=== PATIENT | male | born 1980 | race African-American/Black ===

== ENCOUNTER 2021-06-20 10:45 | Observation (INO) ==
[2021-06-20] MEDS ORDERED: SODIUM CHLORIDE 0.9% 1000ML 1,000 ML IV ONE (11:12)
[2021-06-20] MEDS ORDERED: KETOROLAC TROMETHAMINE 15 MG/ML VIAL IV STA (11:12)
--- NOTE | 2021-06-20 11:19 | Emergency Department Note ---
History of Present Illness General Chief Complaint: Abdominal Pain Stated Complaint: ABDOMINAL PAIN Time Seen by Provider: 06/20/21 11:05 History of Present Illness Provider Complaint: abdominal pain Onset (ago): 2 day(s) Pain Consistency: constant Location: RLQ Severity: moderate Maximum Pain Intensity: 8 Current Pain Intensity: 8 Quality: + stabbing, + aching, + sharp and + dull Relieved By: + nothing Exacerbated By: + nothing Context: no foreign travel, no possible food poisoning, no sick contacts, no recent antibiotic use, no recent surgery/procedure, no recent injury or no history of similar episodes Associated Symptoms: no nausea, no vomiting, no diarrhea, no fever, no chills, no constipation, no dysuria, no hematemesis, no hematochezia, no melena, no hematuria, no anorexia, no syncope, no headache, no neck pain, no back pain, no chest pain, no weakness, no breathing difficulty and no numbness Past Med/Surg History Medical History No pertinent family history No pertinent past medical history Surgical History No pertinent past surgical history Social History Smoking Status: Never smoker Feels Safe at Home: Yes Review of Systems A total of 10 systems reviewed and were otherwise negative Physical Exam Vital Signs: Vital Signs - 24 hr 06/20/21 10:52 06/20/21 12:30 Temperature 36.8 C Temperature Source Temporal Artery Sc an Pulse Rate 78 80 Pulse Rate [Apical ] 80 Respiratory Rate 16 20 Respiratory Effort / Characteristics Non-Labored Sponta neous Respiratory Depth Normal Respiratory Patter n Regular Blood Pressure 175/109 H Blood Pressure [Ri ght Arm] 151/100 H Blood Pressure Sandy n 131 Blood Pressure Sandy n [Right Arm] 117 Blood Pressure Pos ition Sitting Pulse Oximetry 97 98 Oxygen Delivery Me thod Room Air Room Air Sepsis Recent Feve r Within 48 Hours Yes Sepsis New/Unexpla ined Change in Men suha Status N/A Sepsis Action Take n by Nursing No Action Required Physical Exam: Physical Exam GENERAL: He is oriented to person, place, and time. He appears well-developed and well-nourished. He does not appear distressed. HENT: Exam performed. - Head: Normocephalic and atraumatic. - Right Ear: External ear normal. No mastoid tenderness. - Left Ear: External ear normal. No mastoid tenderness. - Mouth/Throat: The oropharynx is clear and moist. No trismus in the jaw. No dental abscesses or uvula swelling. No oropharyngeal exudate or tonsillar abscesses. EYES: Conjunctivae and EOM are normal. Pupils are equal, round, and reactive to light. Right eye exhibits no discharge. Left eye exhibits no discharge. No scleral icterus. NECK: Normal range of motion. Neck supple. No JVD present. No spinous process tenderness present. No carotid bruit present. No rigidity. No tracheal deviation and normal range of motion present. No Brudzinski's sign and no Kernig's sign noted. CV: Normal rate, regular rhythm, normal heart sounds and intact distal pulses. There is no peripheral edema. Palpable radial pulses bue. PULM/CHEST: Effort normal and breath sounds normal. No respiratory distress. No stridor. He has no wheezes. He has no rales. - Chest Wall: He exhibits no tenderness. ABD: The abdomen is soft. Bowel sounds are normal. He has no distension. No mass is present. There is tenderness to palpation of the right lower quadrant. There is no rebound, no guarding, no Loyola's sign. MUSC/SKEL: Normal range of motion. There is no peripheral edema, tenderness or deformity. LYMPH: No cervical adenopathy. NEURO: He is alert and oriented to person, place, and time. He has normal strength. No cranial nerve deficit or sensory deficit. Coordination and gait normal. GCS eye subscore is 4. GCS verbal subscore is 5. GCS motor subscore is 6. Cerebellar tests wnl. SKIN: Skin is warm and dry. He is not diaphoretic. PSYCH: He has a normal mood and affect. Behavior is normal. Judgment and thought content normal. Course Course 1105: The patient was evaluated in room B4. A complete history and physical exam was performed Cardiac monitoring: An order was placed for continuous cardiac monitoring. The monitor shows a rate of 80 with sinus rhythm 1254: Vital signs stable. Labs within normal limits. CT shows appendicitis. Spoke with Giuliana DIETZ for Dr. Wright who states she will be down to evaluate the patient. Zosyn ordered for the patient. Administered Medications Discontinued Medications Sodium Chloride (Nss 1000ml) 1,000 mls @ 999 mls/hr IV .Q1H1M ONE Stop: 06/20/21 12:12 Last Infusion: 06/20/21 12:29 Dose: 0 mls/hr Documented by: [id number] Admin: 06/20/21 11:30 Dose: 999 mls/hr Documented by: [id number] Ioversol (Optiray 320 100ml) 94 ml IV ONCE ONE Stop: 06/20/21 12:19 Last Admin: 06/20/21 12:19 Dose: 94 ml Documented by: [id number] Ketorolac Tromethamine (Ketorolac Tromethamine 15 Mg/Ml Vial) 15 mg IV NOW STA Stop: 06/20/21 11:13 Last Admin: 06/20/21 11:30 Dose: 15 mg Documented by: [id number] Medical Decision Making Laboratory Data Result diagrams: 06/20/21 11:30 06/20/21 11:30 Lab Results 06/20/21 06/20/21 Range/Units 11:30 11:30 WBC 9.28 (4.8-10.8) K/uL RBC 5.34 (4.7-6.1) M/uL Hgb 14.2 (14.0-18.0) g/dL Hct 42.3 (42-52) % MCV 79.2 L (80-100) fL MCH 26.6 (25-34) pg MCHC 33.6 (32-36) g/dL RDW Std Deviation 39.6 (36.4-46.3) fL RDW Coeff of Alberto 13.7 (11.5-14.5) % Plt Count 182 (130-400) K/uL MPV 10.1 (7.4-10.4) fL Immature Gran % (Auto) 0.1 % Neut % (Auto) 62.2 % Lymph % (Auto) 30.8 % [place] % (Auto) 6.5 % Eos % (Auto) 0.3 % Baso % (Auto) 0.1 % Neut # (Auto) 5.77 (1.4-6.5) K/uL Lymph # (Auto) 2.86 (1.2-3.4) K/uL [place] # (Auto) 0.60 H (0.11-0.59) K/uL Eos # (Auto) 0.03 (0-0.5) K/uL Baso # (Auto) 0.01 (0-0.2) K/uL Immature Gran # (Auto) 0.01 (0.00-0.02) K/uL Sodium 137 (136-145) mmol/L Potassium 3.9 (3.5-5.1) mmol/L Chloride 105 (98-107) mmol/L Carbon Dioxide 27 (21-32) mmol/L Anion Gap 5 (3-11) BUN 15 (6-23) mg/dl Creatinine 1.35 (0.6-1.4) mg/dl Est Cr Clr Drug Dosing 72.8 ml/min Est GFR ( Amer) 76.1 ml/min Est GFR (Non-Af Amer) 65.7 ml/min BUN/Creatinine Ratio 11.1 (10-20) Glucose 93 (70-99(Fasting)) mg/dl Calcium 9.4 (8.5-10.1) mg/dl Total Bilirubin 1.0 (0.2-1.0) mg/dl Direct Bilirubin 0.1 (0-0.2) mg/dl AST 15 (13-39) U/L ALT 12 (7-52) U/L Alkaline Phosphatase 77 (34-104) U/L Total Protein 7.3 (6.0-8.3) gm/dl Albumin 4.3 (3.4-5.0) gm/dl Lipase 7 L (11-82) U/L MDM Narrative Vital signs stable. Labs within normal limits. CT shows appendicitis. Spoke with Giuliana DIETZ for Dr. Wright who states she will be down to evaluate the patie nt. Zosyn ordered for the patient. Impression & Plan Acute appendicitis Discharge Plan Visit Data Chief Complaint: Abdominal Pain Stated Complaint: ABDOMINAL PAIN ED Provider: Adrian Valero Discharge Problem: Acute appendicitis Patient Disposition: Being Evaluated by Surgeon Forms Stand Alone Forms: [facility] Referrals Referrals: PCP,NO [Physician] -
[2021-06-20 11:41] LABS: Basophils # (auto) 0.01 K/uL (0-0.2); Basophils % (auto) 0.1 %; Eosinophils # (auto) 0.03 K/uL (0-0.5); Eosinophils % (auto) 0.3 %; Hematocrit (blood only) 42.3 % (42-52); Hemoglobin 14.2 g/dL (14.0-18.0); Immature Granulocytes # (auto) 0.01 K/uL (0.00-0.02); Immature Granulocytes % (auto) 0.1 %; Lymphocytes # (auto) 2.86 K/uL (1.2-3.4); Lymphocytes % (auto) 30.8 %; Mean Corpuscular Hemoglobin 26.6 pg (25-34); Mean Corpuscular Hgb Conc 33.6 g/dL (32-36); Mean Corpuscular Volume 79.2 fL (80-100); Mean Platelet Volume 10.1 fL (7.4-10.4); Monocytes % (auto) 6.5 %; Neutrophils # (auto) 5.77 K/uL (1.4-6.5); Neutrophils % (auto) 62.2 %; Platelet Count 182 K/uL (130-400); RDW Coefficient of Variation 13.7 % (11.5-14.5); RDW Standard Deviation 39.6 fL (36.4-46.3); Red Blood Count 5.34 M/uL (4.7-6.1); White Blood Count 9.28 K/uL (4.8-10.8)
[2021-06-20 11:58] LABS: Albumin Level 4.3 gm/dl (3.4-5.0); BUN Creatinine Ratio 11.1 (10-20); Bilirubin Direct 0.1 mg/dl (0-0.2); Calcium 9.4 mg/dl (8.5-10.1); Creatinine Clr Calc Pharmacy 72.8 ml/min; Est GFR (African American) 76.1 ml/min; Est GFR (Non-African American) 65.7 ml/min; Potassium 3.9 mmol/L (3.5-5.1); Total Protein 7.3 gm/dl (6.0-8.3)
[2021-06-20] MEDS ORDERED: OPTIRAY 320 100ml IV ONE (12:18)
--- NOTE | 2021-06-20 12:42 | CT Scan Report ---
CT abd pelvis IV con only CLINICAL HISTORY: rlq pain evaluate for appy COMPARISON STUDY: No previous studies for comparison. CT DOSE: 276.35 mGy.cm TECHNIQUE: Standard CT of the Abdomen and Pelvis was performed with IV contrast. A dose lowering ronny hnique was utilized adhering to the principles of ALARA. Contrast Volume: ml. The patient did not receive oral contrast. FINDINGS: Lung base: The lung bases are clear. Abdominal cavity: There is no evidence for abdominal mass, adenopathy or ascites. Liver: There is homogeneous attenuation of the liver parenchyma. There is no evidence for enhancing m ass lesion. Spleen: There is homogeneous attenuation of the splenic parenchyma. There is no enhancing mass lesion . Pancreas: There is homogeneous attenuation of the pancreatic parenchyma. There is no evidence for mas s lesion or peripancreatic fluid collection. Gall Bladder: The gallbladder is well distended with no evidence for intraluminal calculi, wall thick ening or pericholecystic edema. Adrenal glands: The adrenal glands are normal in size and attenuation. There is no evidence for enhan cing mass lesion. Kidneys: There is homogeneous attenuation of the renal parenchyma bilaterally. There is no evidence f or renal calculus or hydronephrosis. There is no evidence for enhancing mass. Bowel: The bowel loops are normally placed within the abdomen and pelvis without evidence for dilatat ion or obstruction. There is no evidence for mass lesion. There is dilatation of the appendix measuring approximately 10 mm, with enhancement of the appendicea l wall. Periappendiceal inflammatory changes are present. The findings represent early acute appendic itis. There is no evidence for perforation, abscess or free air. It should be noted that the appendix crosses to the midline. Bladder: The bladder is within normal limits with no evidence for focal mass, calculus or diverticulu m. : There is no evidence for pelvic mass or adenopathy. There is no evidence for pelvic ascites. Vasculature: There is no evidence for aneurysmal dilatation of the abdominal aorta. Osseous structures: There is no acute osseous pathology. IMPRESSION: 1. Evidence for early acute appendicitis with no evidence for perforation, abscess or free air. The a ppendix crosses from the right lower quadrant to the midline. ACT 112: Negative or not required by law. Electronically signed by: Ector Ojeda M.D. 06/20/2021 12:41 PM
[2021-06-20] MEDS ORDERED: PIPERACILLIN/TAZOBACTAM 4.5 GM/120 ML BAG IV ONE (12:45)
--- NOTE | 2021-06-20 13:10 | History & Physical Report ---
Date of Service June 20, 2021 Assessment & Plan (1) Acute appendicitis: Plan: This is a 41y M with no significant PMH who presents to the [facility] ED on 06/20/21 with complaints of abdominal pain starting yesterday. Patient initially started around his belly button and has appeared to localize to the RLQ and infraumbilically. In the ER a CT a/p that revealed findings concerning for acute appendicitis without abscess/perforation. WBC 9.2. Patient is afebrile and hypertensive. Based on history, physical, and workup we will proceed with taking pt to the OR for a laparoscopic appendectomy. Pt NPO with IVF and started on preop abx. Covid testing pending. Dr. Wright will obtain surgical consent. History of Present Illness Primary Care Provider: Joseph Borges MD This is a 41y M with no significant PMH who presents to the [facility] ED on 06/20/21 with complaints of abdominal pain. Patient reports his abdominal pain started yesterday morning around 10AM, located around his belly button. The pain improved but then returned around 3pm and it has since been constant. He rates his pain about a 6/10, located in the lower mid/right abdomen. He came into the ER for further evaluation. He underwent a CT a/p that revealed findings concerning for acute appendicitis without abscess/perforation. He denies any fevers/chills, CP/SOB, nausea/vomiting, diarrhea/constipation. No prior abdominal surgical history. He last had anything to eat yesterday. Allergies Allergy/AdvReac Type Severity Reaction Status Date / Time Penicillins Allergy Irritable Unverified 06/20/21 13:18 Home Medications Medication Instructions Recorded Confirmed Type No Known Home Medications 06/20/21 06/20/21 History Past Med/Surg History Medical History No pertinent family history No pertinent past medical history Surgical History No pertinent past surgical history Social History Smoking Status: Never smoker Feels Safe at Home: Yes Review of Systems Respiratory: no dyspnea Cardiovascular: no chest pain Gastrointestinal: + abdominal pain; no bloating, no nausea, no vomiting and no change in bowel habits Physical Exam Physical Exam: awake/alert Constitutional: well developed and well nourished; no acute distress Respiratory: normal respiratory effort Gastrointestinal (Abdomen): Inspection/Auscultation: abdomen not distended Percussion/Palpation: + abdomen tender (ttp in the RLQ and infraumbilically ) and abdomen soft Results & Data Results & Data ([facility]) Vital Signs (Past 12 Hours) Vital Signs Temp Pulse Pulse Resp BP BP Pulse Ox 06/20/21 12:30 80 80 20 151/100 H 98 06/20/21 10:52 36.8 C 78 16 175/[address] abd pelvis IV con only CLINICAL HISTORY: rlq pain evaluate for appy COMPARISON STUDY: No previous studies for comparison. CT DOSE: 276.35 mGy.cm TECHNIQUE: Standard CT of the Abdomen and Pelvis was performed with IV contrast. A dose lowering technique was utilized adhering to the principles of ALARA. Contrast Volume: ml. The patient did not receive oral contrast. FINDINGS: Lung base: The lung bases are clear. Abdominal cavity: There is no evidence for abdominal mass, adenopathy or asci sharmin. Liver: There is homogeneous attenuation of the liver parenchyma. There is no evidence for enhancing mass lesion. Spleen: There is homogeneous attenuation of the splenic parenchyma. There is no enhancing mass lesion. Pancreas: There is homogeneous attenuation of the pancreatic parenchyma. There is no evidence for mass lesion or peripancreatic fluid collection. Gall Bladder: The gallbladder is well distended with no evidence for intraluminal calculi, wall thickening or pericholecystic edema. Adrenal glands: The adrenal glands are normal in size and attenuation. There is no evidence for enhancing mass lesion. Kidneys: There is homogeneous attenuation of the renal parenchyma bilaterally. There is no evidence for renal calculus or hydronephrosis. There is no evidence for enhancing mass. Bowel: The bowel loops are normally placed within the abdomen and pelvis without evidence for dilatation or obstruction. There is no evidence for mass lesion. There is dilatation of the appendix measuring approximately 10 mm, with enhancement of the appendiceal wall. Periappendiceal inflammatory changes are present. The findings represent early acute appendicitis. There is no evidence for perforation, abscess or free air. It should be noted that the appendix crosses to the midline. Bladder: The bladder is within normal limits with no evidence for focal mass, calculus or diverticulum. : There is no evidence for pelvic mass or adenopathy. There is no evidence for pelvic ascites. Vasculature: There is no evidence for aneurysmal dilatation of the abdominal aorta. Osseous structures: There is no acute osseous pathology. IMPRESSION: 1. Evidence for early acute appendicitis with no evidence for perforation, abscess or free air. The appendix crosses from the right lower quadrant to the midline. ACT 112: Negative or not required by law. Electronically signed by: Ector Ojeda M.D. 06/20/2021 12:41 PM Supervising Physician Co-Signing Physician Notes Dr. Wrightpatient with acute appendicitis For laparoscopic appendectomy, possible open appendectomy PG Care Time/CCT Total # of Minutes Spent Total Time Spent with Patient: Total time spent is greater than 50% in coordination of care (as documented) at patient's floor/unit and/or counseling patient: Coding Level of Care Code 83105 Initial Inpt Care Lvl 2 Diagnoses Acute appendicitis K35.80 Acute appendicitis type: unspecified acute appendicitis type (1) Acute appendicitis Acute appendicitis type: unspecified acute appendicitis type Qualified Code(s): K35.80 - Unspecified acute appendicitis
[2021-06-20] MEDS ORDERED: BUPIVACAINE 0.5 % 5 MG/1 ML MPF 30ML VIAL ONE (13:34)
--- NOTE | 2021-06-20 13:35 | Anesthesiology Consultation ---
Date of Service June 20, 2021 Assessment & Plan Chart Review Chart Review: Acceptable Risk for Surgery and Patient NOT seen in Pre Admission Testing Consults Requested none ASA [id number] Proposed Anesthesia Anesthesia Type: General History Surgery Operation Date: 06/20/21 14:00 Proposed Procedures p Laparoscopic Appendectomy - Bryce Wright MD, FACS Height/Weight Height: 6 ft Weight: 70.1 kg Allergies Allergy/AdvReac Type Severity Reaction Status Date / Time Penicillins Allergy Irritable Unverified 06/20/21 13:18 Medications Home Medications Medication Instructions Recorded Confirmed Last Taken No Known Home Medications 06/20/21 06/20/21 Unknown NPO Date Last Intake of Fluids: 06/20/21 Time Last Intake of Fluids: 09:15 Last Intake of Fluids Comment: Tea Date Last Intake of Solids: 06/19/21 Past Medical History Medical History No pertinent family history No pertinent past medical history Hypertension Exercise / Class Metabolic Activity II 4-5 Yardwork/Stairs/Walk up hill Past Surgical History Surgical History No pertinent past surgical history Past Anesthesia History No Hx of Anesthesia Complications and No Family Hx of Anesthesia Complications History of PONV No Hx of PONV and No Hx of Motion Sickness Social History Smoking Status: Never smoker Physical Exam Vital Signs Last Vital Signs Temp 36.8 C 06/20/21 10:52 Pulse 80 06/20/21 12:30 Resp 20 06/20/21 12:30 BP 151/100 H 06/20/21 12:30 Pulse Ox 98 06/20/21 12:30 Testing Laboratory Results 06/20/21 11:30 06/20/21 11:30
[2021-06-20] MEDS ORDERED: MIDAZOLAM HCL 1 MG/ML 2ML VIAL ONE (13:41)
[2021-06-20] MEDS ORDERED: DEXAMETHASONE SOD INJ 4 MG/ML VIAL ONE (13:41)
[2021-06-20] MEDS ORDERED: fentaNYL citrate 100 MCG/2 ML VIAL ONE (13:41)
[2021-06-20] MEDS ORDERED: LIDOCAINE 2% 2 ML VIAL/AMP(20MG/ML) INFIL ONE (13:41)
[2021-06-20] MEDS ORDERED: ONDANSETRON INJ 2 MG/ML 2 ML VIAL ONE (13:41)
[2021-06-20] MEDS ORDERED: ROCURONIUM BROMIDE 10 MG/ML 5 ML VIAL IV ONE (13:41)
[2021-06-20] MEDS ORDERED: fentaNYL citrate 100 MCG/2 ML VIAL IV PRN (13:50)
[2021-06-20] MEDS ORDERED: LABETALOL HCL IV 5 MG/ML 20ML IV PRN (13:50)
[2021-06-20] MEDS ORDERED: ePHEDrine sulfate 50 MG/ML AMP IV PRN (13:50)
[2021-06-20] MEDS ORDERED: ONDANSETRON INJ 2 MG/ML 2 ML VIAL IV PRN ×2 (13:50→16:34)
[2021-06-20] MEDS ORDERED: HYDROmorphone INJ 1 MG/ML SYRINGE IV PRN (13:50)
[2021-06-20] MEDS ORDERED: NALOXONE HCL 0.4 MG/1 ML VIAL/CARP IV PRN (13:50)
[2021-06-20] MEDS ORDERED: ATROPINE SULFATE 0.1 MG/ML 10ML SYR IV PRN (13:50)
[2021-06-20] MEDS ORDERED: PROMETHAZINE HCL 12.5 MG in SODIUM CHLORIDE 0.9% 50 ML IV PRN ×2 (13:50→16:34)
[2021-06-20] MEDS ORDERED: FLUMAZENIL 0.1 MG/1 ML 10 ML VIAL IV PRN (13:50)
[2021-06-20] MEDS ORDERED: GLYCOPYRROLATE 0.2 MG/ML VIAL ONE (14:29)
[2021-06-20] MEDS ORDERED: NEOSTIGMINE METHYLSULFATE 1 MG/ML 10ML VIAL ONE (14:29)
[2021-06-20] MEDS ORDERED: LABETALOL HCL IV 5 MG/ML 20ML IV ONE (14:50)
[2021-06-20] MEDS ORDERED: KETOROLAC 30 MG/ML VIAL ONE (14:50)
[2021-06-20] MEDS ORDERED: ACETAMINOPHEN 1,000 MG/100 ML VIAL IV ONE (14:51)
--- NOTE | 2021-06-20 14:51 | Post Operative Brief Note ---
PG Immediate Post Op with CF Date of Surgery June 20, 2021 Pre & Post Diagnosis Operation Date: 06/20/21 14:00 Pre-Op Diagnosis: Acute Appendicitis Post-Op Diagnosis: Acute Appendicitis I identified the patient and participated in the time-out.: Yes Procedure Operation Date: 06/20/21 14:00 Actual Procedures p Laparoscopic Appendectomy, Umbilical Hernia Repair - Bryce Wright MD, FACS Surgeon Bryce Wright MD, FACS [employer] Estimated Blood Loss 10 Findings Consistent with Post-Op Diagnosis Acute appendicitis with retroperitoneal adhesions and umbilical hernia Specimens Specimen Description: A: Appendix
--- NOTE | 2021-06-20 15:46 | Anesthesiology Progress Note ---
Date of Service June 20, 2021 Anesthesia Post Procedure Vital Signs Vital Signs: Temp Pulse Pulse Resp BP BP Pulse Ox 06/20/21 15:40 36.1 C L 71 13 129/81 96 06/20/21 15:30 62 14 145/92 H 98 06/20/21 15:20 66 21 126/82 99 06/20/21 15:10 83 13 124/85 100 06/20/21 15:02 36.2 C L 76 13 128/81 99 06/20/21 12:30 80 80 20 151/100 H 98 06/20/21 10:52 36.8 C 78 16 175/109 H 97 Pain Intensity Abdomen: Pain Intensity: 5 Transfer of Care Handoff Completed per policy Notes Mental Status: alert / awake / arousable Patient Amnestic to Procedure: Yes Nausea / Vomiting: adequately controlled Pain: adequately controlled Airway Patency, RR, SpO2: stable & adequate BP & HR: stable & adequate Hydration State: stable & adequate Anesthetic Complications: no major complications apparent
--- NOTE | 2021-06-20 15:59 | Operative Report (OR) ---
DATE OF OPERATION: 06/20/2021. NAME OF OPERATION: Laparoscopic appendectomy with umbilical hernia repair. PREOPERATIVE DIAGNOSES: Acute appendicitis with umbilical hernia. POSTOPERATIVE DIAGNOSES: Acute appendicitis with umbilical hernia. STAFF SURGEON: Bryce Wright MD. RN LACTATION CONSULTANT: Giuliana Marx PA-C. ANESTHESIA: General. DESCRIPTION OF PROCEDURE: The patient was brought in the operating room and placed on the operating table in supine position. His abdomen was prepped and draped in the usual fashion. My diagnostic assistant hel ped with prepping, draping, removal of the appendix, closure of the hernia and closure of the wounds. A 0.5% plain Marcaine was used to anesthetize all incisions. Incision was made in the upper part o f the umbilicus, carrying dissection down identifying the hernia sac, opening it, excising the conten ts, 11 mm port was placed at this level. Pneumoperitoneum produced. I did have to place a balloon c annula at this level and then a 5 mm port placed in the suprapubic area and a 12 mm port in the left lower quadrant. The cecum was reflected. The base of the appendix was identified. The tip was deep in the retroperitoneal area with adhesions. The base of the appendix was transected using the Endo-CLEM stapler and then gradually we were able to mobilize the appendix, transecting the mesoappendix using an Endo-CLEM stapler. After appropriate he mostasis and irrigation, the appendix was placed in an Endobag. It was removed through the left lowe r quadrant port site. At this point, all ports were removed. Fascia at the umbilicus closed using # 1 Ethibond suture. Left lower quadrant fascia was closed using 0 Vicryl suture. Umbilical skin and a 5 mm port site skin closed using subcuticular 4-0 Monocryl with Dermabond. Left lower quadrant ski n closed using 4-0 Monocryl with Steri-Strips. The patient was transferred to recovery room in [facility] condition. Job ID: [id number]
[2021-06-20] MEDS ORDERED: LACTATED RINGER'S 1,000 ML IV SCH (16:34)
[2021-06-20] MEDS ORDERED: oxyCODONE HCL IR 5 MG TAB (IMMEDIATE RELEASE) PO PRN (16:34)
[2021-06-20] MEDS ORDERED: IBUPROFEN 600 MG TAB PO PRN (16:34)
[2021-06-20] MEDS ORDERED: ACETAMINOPHEN 325 MG TAB PO PRN (16:34)
[2021-06-20] MEDS ORDERED: HYDROmorphone INJ 0.5 MG/0.5 ML SYR IV PRN ×2 (16:34)
--- NOTE | 2021-06-21 22:27 | Discharge Summary (DS) ---
DATE OF ADMISSION: 06/20/2021 DATE OF DISCHARGE: 06/21/2021 PRINCIPAL DIAGNOSIS: Acute appendicitis. PROCEDURE: Laparoscopic appendectomy. HISTORY OF PRESENT ILLNESS: The patient is a 41-year-old male presenting to the Emergency Room with acute abdominal pain and found to have acute appendicitis. He was taken to the operating room on 09/2021 where he underwent laparoscopic appendectomy, which he tolerated very well. He has done well overnight and is felt stable for discharge home today to be followed in the surgical clinic within 1 -2 weeks. Job ID: [id number]
== END 2021-06-21 10:55 | disposition home or self-care (01) ==
LOC: ED 10:45 → ASU 13:40 → INTOOBSV 14:51 → 3W 14:51